=== PATIENT | male | born 1970 | race Caucasian/White ===

== ENCOUNTER 2016-05-12 06:28 | Observation (INO) | payer MEDICAID ==
[~2016-05-12] VITALS: Ht 165.1 cm; Wt 61.1 kg
[~2016-05-12 06:28] MED LIST: AMLO10TA2 PO; HYDR25TA6 PO; LISI1TAB3 PO; LOSA50TA6 PO; MECL-76 PO; PANT40TA3 PO; TRAM-28 PO
[2016-05-12] MEDS ORDERED: SODIUM CHLORIDE FLUSH 10ML SYR IVF ONE (07:00)
[2016-05-12] MEDS ORDERED: SODIUM CHLORIDE 0.9% 1,000ML IVBOLUS ONE (07:00)
[2016-05-12] MEDS ORDERED: ONDANSETRON 2MG/ML, 2ML IVPush ONE (07:00)
[2016-05-12] MEDS ORDERED: MAALOX/HYOSCYAMINE/LIDOCAINE 45 ML BOTTLE PO ONE (07:00)
[2016-05-12] MEDS ORDERED: FAMOTIDINE 20 MG/2 ML IVP ONE (07:00)
[2016-05-12] MEDS ORDERED: LISI-170 PO (07:14)
[2016-05-12] MEDS ORDERED: MAALOX/HYOSCYAMINE/LIDOCAINE 45 ML BOTTLE ONE (07:15)
[2016-05-12] MEDS ORDERED: ONDANSETRON 2MG/ML, 2ML ONE (07:15)
[2016-05-12] MEDS ORDERED: FAMOTIDINE 20 MG/2 ML ONE (07:15)
[2016-05-12 07:19] LABS: HEMOGLOBIN 17.2 g/dL (13.7-18.0)
[2016-05-12 08:59] LABS: BLOOD UREA NITROGEN 10 mg/dL (7-18)
[2016-05-12 09:00] LABS: ASPARTATE AMINO TRANSFERASE 55 U/L (15-37)
[2016-05-12 09:09] LABS: IS PT STATUS REG ER OR PRE ER? YES
[2016-05-12] MEDS ORDERED: OMNIPAQUE 350 MG/ML, 100ML BOTTLE ONE (10:13)
[2016-05-12] MEDS ORDERED: ASPIRIN 81 MG TABLET CHEW ONE (11:05)
[2016-05-12] MEDS ORDERED: ASPIRIN 81 MG TABLET CHEW PO ONE (11:30)
[2016-05-12 12:31] VITALS: BP_SYST 200; BP_SYST 202; BP_DIAS 108; BP_DIAS 123
[2016-05-12] MEDS ORDERED: ENALAPRILAT 1.25 MG/ML, 2ML IV ONE (13:00)
[2016-05-12] MEDS ORDERED: morphine SULFATE 10 MG/ML, 1ML IV PRN (13:30)
[2016-05-12] MEDS ORDERED: NITROGLYCERIN 0.4 MG/SPRAY SL PRN (13:30)
[2016-05-12] MEDS ORDERED: ACETAMINOPHEN 325 MG TABLET PO PRN (13:30)
[2016-05-12 14:30] VITALS: BP 160/100
[2016-05-12] MEDS: PANTOPROZOLE 40MG TABLET PO SCH (14:31)
[2016-05-12] MEDS: AMLODIPINE 5 MG TABLET PO SCH ×2 (14:31→22:30)
[2016-05-12 14:52] LABS: IS PT STATUS REG ER OR PRE ER? NO
[2016-05-12 19:25] VITALS: BP_SYST 157; BP_SYST 168; BP_DIAS 70; BP_DIAS 92
[2016-05-12 19:59] LABS: IS PT STATUS REG ER OR PRE ER? NO
[2016-05-12] MEDS ORDERED: TRAZODONE 50MG TABLET PO PRN (22:00)
[2016-05-13 01:27] VITALS: BP 141/92
[2016-05-13] MEDS: PANTOPROZOLE 40MG TABLET PO SCH (01:27)
[2016-05-13] MEDS ORDERED: ASPIRIN 325 MG TABLET EC PO SCH (06:00)
[2016-05-13 06:33] LABS: BLOOD UREA NITROGEN 8 mg/dL (7-18)
[2016-05-13 06:54] VITALS: BP_SYST 160; BP_SYST 166; BP_DIAS 102; BP_DIAS 106
[2016-05-13] MEDS: AMLODIPINE 5 MG TABLET PO SCH (07:50)
[2016-05-13 08:21] LABS: HEMOGLOBIN 16.1 g/dL (13.7-18.0)
[2016-05-13] MEDS ORDERED: REGADENOSON 0.4 MG/5 ML SYRINGE ONE (08:46)
[2016-05-13] MEDS ORDERED: LISINOPRIL 20 MG TABLET PO SCH (09:00)
[2016-05-13] MEDS ORDERED: AMLO5TAB2 PO (12:55)
== END 2016-05-13 13:52 | disposition home or self-care (01) ==
LOC: ED 08:29 → EDIP 11:02 → INTOOBSV 11:02 → UNDOADMIN 11:06 → EDIP 11:06 → 5SO 12:29
PROVIDERS: ADMIT Internal Medicine; ATTEND Internal Medicine
DX: R07.9 Chest pain, unspecified (principal); A08.4 Viral intestinal infection, unspecified; I10 Essential (primary) hypertension; F17.210 Nicotine dependence, cigarettes, uncomplicated
CPT/HCPCS: 36415; 71010; 71275; 74175; 76705; 78452; 80048; 80053; 80061; 83605; 83690; 84484; 85014; 85018; 85025; 85610; 93005; 93017; 96361; 96374; 96375; 99285; A9502; C9898; G0378; J2405; J7030; Q9967; J2785; S0028